=== PATIENT | male | born 1980 ===

== ENCOUNTER 2022-06-05 06:58 | Day surgery (SDC) | payer OTHER ==
[~2022-06-05] VITALS: Ht 160 cm; Wt 70.4 kg
[~2022-06-05 06:58] MED LIST: SODIUM CHLORIDE 0.9% 1,000 ML IV ONE
[2022-06-05] MEDS ORDERED: FentaNYL CITRATE PF 100 MCG/2 ML VIAL ONE (07:47)
[2022-06-05] MEDS ORDERED: MIDAZOLAM HCL 2 MG/2 ML VIAL ONE (07:47)
[2022-06-05] MEDS ORDERED: SODIUM CHLORIDE 0.9% 1,000 ML ONE (07:51)
[2022-06-05] MEDS ORDERED: MONT-35 PO (08:02)
[2022-06-05] MEDS ORDERED: GABA-1181 PO (08:02)
[2022-06-05] MEDS ORDERED: FAMO20 PO (08:02)
[2022-06-05] MEDS ORDERED: ALBU8HFA IH (08:02)
[2022-06-05] MEDS ORDERED: AZEL23SP2 NASAL (08:02)
[2022-06-05 08:18] LABS: COVID AG,FIA SOURCE NASAL SWAB
[2022-06-05] MEDS ORDERED: MethylPREDNISolone SOD SUCC 125 MG/2 ML VIAL ONE (08:57)
[2022-06-05] MEDS ORDERED: MethylPREDNISolone SOD SUCC 125 MG/2 ML VIAL IVP ONE (09:15)
[2022-06-05] MEDS ORDERED: OXYGEN THERAPY IH SCH (20:00)
== END 2022-06-05 10:35 | disposition home or self-care (01) ==
LOC: SURGERY 06:58
PROVIDERS: ATTEND Internal Medicine Critical Care Medicine
DX: J38.4 Edema of larynx (principal); B37.0 Candidal stomatitis; Z79.899 Other long term (current) drug therapy; Z20.822 Contact with and (suspected) exposure to COVID-19; Z72.89 Other problems related to lifestyle
CPT/HCPCS: 31623; 88112; 87101; 87220; 87070; 31624; 94640; 71045; 87015; 87426; 93005; 87206; J3010; J2250; J2930; J7030; C9803